=== PATIENT | female | born 1995 ===

== ENCOUNTER 2025-02-03 05:13 | Inpatient (IN) | payer OTHER ==
[2025-01-28 13:04] VITALS: BP 105/70
[~2025-02-03] VITALS: Ht 157.5 cm; Wt 63.5 kg
[2025-02-03] MEDS ORDERED: ACETAMINOPHEN 500 MG GEL..CAP PO ONE ×2 (07:10→17:25)
[2025-02-03] MEDS ORDERED: METRONIDAZOLE/SODIUM CHLORIDE 500 MG/100 ML PIGGYBACK IV ONE (07:11)
[2025-02-03] MEDS ORDERED: CELECOXIB 200 MG CAPSULE PO ONE (07:11)
[2025-02-03] MEDS ORDERED: POVIDONE-IODINE 118 ML BOTT TOP ONE (07:11)
[2025-02-03] MEDS ORDERED: CEFAZOLIN SODIUM 2,000 MG in 0.9 % SODIUM CHLORIDE 100 ML IV ONE (09:15)
[2025-02-03] MEDS ORDERED: VISTASEAL DUAL APPICATOR 1 EACH APPL TOP ONE (09:20)
[2025-02-03] MEDS ORDERED: THROMBIN,HU/FIBRINOGEN/CALCIUM 10 ML SYRINGE TOP ONE (09:20)
[2025-02-03] MEDS ORDERED: MORPHINE SULFATE 4 MG/ML VIAL IV ONE ×2 (12:30→13:30)
[2025-02-03] MEDS ORDERED: KETOROLAC TROMETHAMINE 30 MG VIAL IV ONE (12:45)
[2025-02-03] MEDS ORDERED: RINGERS SOLUTION,LACTATED 1,000 ML IV SCH ×2 (12:45→16:15)
[2025-02-03] MEDS ORDERED: KETOROLAC TROMETHAMINE 30 MG VIAL ONE ×2 (13:11→17:25)
[2025-02-03] MEDS ORDERED: CEFAZOLIN SODIUM 1,000 MG VIAL ONE (13:12)
[2025-02-03] MEDS ORDERED: OxyCODONE HCL 5 MG TABLET (ROXICODONE) PO STA (16:02)
[2025-02-03] MEDS ORDERED: MORPHINE SULFATE 4 MG/ML CARTRIDGE IV ONE (16:45)
[2025-02-03] MEDS ORDERED: KETOROLAC TROMETHAMINE 30 MG VIAL IU SCH (17:00)
[2025-02-03] MEDS ORDERED: GABAPENTIN 300 MG CAPSULE PO SCH (17:00)
[2025-02-03] MEDS ORDERED: GABAPENTIN 300 MG CAPSULE PO ONE (17:25)
[2025-02-03] MEDS ORDERED: ACETAMINOPHEN 500 MG GEL..CAP PO SCH (18:00)
[2025-02-03] MEDS ORDERED: OxyCODONE HCL 5 MG TABLET (ROXICODONE) PO PRN (18:15)
[2025-02-03 18:25] VITALS: BP 116/74; O2SAT 99
[2025-02-04 00:27] VITALS: BP 110/60
[2025-02-04 04:30] LABS: BASO % 0.3 % (0.1-1.2); EOS # 0.34 (0.04-0.54); EOS % 2.9 % (0.7-7.0); HEMATOCRIT 35.4 % (34.1-44.9); HEMOGLOBIN 11.4 g/dL (11.2-15.7); LYMPH # 1.89 (1.18-3.74); LYMPH % 16.2 % (19.3-53.1); MEAN CORPUSCULAR HEMOGLOBIN 29.6 pg (25.6-32.2); MONO # 1.06 (0.24-0.82); MONO % 9.1 % (4.7-12.5); NEUT # 8.32 (1.56-6.13); NEUT % 71.2 % (34.0-71.1); PLATELET COUNT 321 K/uL (163-369); RED BLOOD COUNT 3.85 M/uL (3.93-5.22); RED CELL DISTRIBUTION WIDTH 13.8 % (11.6-14.4)
[2025-02-04 05:00] VITALS: BP 90/55
[2025-02-04 08:56] VITALS: BP 104/67; O2SAT 98
== END 2025-02-04 10:16 | disposition home or self-care (01) | DRG 743 ==
LOC: CIR.AMB 05:13 → OB/GYN 16:29 → O/R 16:29 → OB/GYN 16:41
PROVIDERS: ADMIT Student in an Organized Health Care Education/Training Program; ATTEND Student in an Organized Health Care Education/Training Program
PROC: 0DBW4ZZ Excision of Peritoneum, Percutaneous Endoscopic Approach (ICD-10-PCS; 2025-02-03)
PROC: 0DNW4ZZ Release Peritoneum, Percutaneous Endoscopic Approach (ICD-10-PCS; 2025-02-03)
PROC: 0TN74ZZ Release Left Ureter, Percutaneous Endoscopic Approach (ICD-10-PCS; 2025-02-03)
PROC: 0TN64ZZ Release Right Ureter, Percutaneous Endoscopic Approach (ICD-10-PCS; 2025-02-03)
PROC: 0DNP4ZZ Release Rectum, Percutaneous Endoscopic Approach (ICD-10-PCS; 2025-02-03)
PROC: 0DNN4ZZ Release Sigmoid Colon, Percutaneous Endoscopic Approach (ICD-10-PCS; 2025-02-03)
PROC: 0TBB4ZZ Excision of Bladder, Percutaneous Endoscopic Approach (ICD-10-PCS; 2025-02-03)
PROC: 0UBF4ZZ Excision of Cul-de-sac, Percutaneous Endoscopic Approach (ICD-10-PCS; 2025-02-03)
PROC: 8E0W4CZ Robotic Assisted Procedure of Trunk Region, Percutaneous Endoscopic Approach (ICD-10-PCS; 2025-02-03)
PROC: 3E1P88Z Irrigation of Female Reproductive using Irrigating Substance, Via Natural or Artificial Opening Endoscopic (ICD-10-PCS; 2025-02-03)
PROC: 0UB24ZZ Excision of Bilateral Ovaries, Percutaneous Endoscopic Approach (ICD-10-PCS; principal; 2025-02-03 07:00)
DX: D27.0 Benign neoplasm of right ovary (principal); D27.1 Benign neoplasm of left ovary; N94.6 Dysmenorrhea, unspecified; R10.2 Pelvic and perineal pain; N80.03 Adenomyosis of the uterus; N80.353 Endometriosis of bilateral pelvic sidewall, unspecified depth; N80.3C3 Endometriosis of bilateral uterosacral ligament(s), unspecified depth; N80.319 Endometriosis of the anterior cul-de-sac, unspecified depth; N80.00 Endometriosis of the uterus, unspecified; N80.102 Endometriosis of left ovary, unspecified depth; N80.02 Deep endometriosis of the uterus
CPT/HCPCS: 58662; 50715; 44180; 58350; S2900